=== PATIENT | male | born 1945 | race Two or more races ===

== ENCOUNTER 2023-08-07 16:21 | Emergency (ER) | payer OTHER ==
[~2023-08-07] VITALS: Ht 185.4 cm; Wt 89.8 kg
[2023-08-07] MEDS ORDERED: MICARDIS HCT 81 EAC1 PO (16:33)
[2023-08-07] MEDS ORDERED: UROXATRAL10 MG PO (16:34)
[2023-08-07] MEDS ORDERED: [UNRECOGNIZED DRUG - OTHER] (16:34)
[2023-08-07] MEDS ORDERED: VERELAN PM200 MG (16:34)
[2023-08-07 18:26] LABS: HEMATOCRIT 37.4 % (39.0-48.0); MEAN CELL VOLUME 88.9 fL (80.0-100.00); MEAN CORPUSCULAR HEMOGLOBIN 30.8 pg (27.00-32.0); MEAN CORPUSCULAR HGB CONC 34.6 g/dl (32.0-36.0); PLATELET COUNT 356 K/uL (150-450); RED BLOOD COUNT 4.21 M/uL (4.00-6.00); RED CELL DISTRIBUTION WIDTH 13.9 % (11.5-14.5)
[2023-08-07 18:49] LABS: ALBUMIN 3.7 gm/dL (3.4-5.0); BILIRUBIN TOTAL 0.38 mg/dL (0.3-1.2); CALCIUM 9.1 mg/dL (8.5-10.1); CKMB 1.7 NG/ML (0.5-3.6); CREATININE SERUM 1.08 mg/dL (0.70-1.30); GFR 65.95; GLOBULINA 3.8 G/DL (2.4-3.5); POTASSIUM 3.82 mEq/L (3.5-5.1); TOTAL PROTEIN 7.5 gm/dL (6.4-8.2)
== END 2023-08-07 22:24 | disposition home or self-care (01) ==
LOC: ER 16:21
PROVIDERS: Internal Medicine
DX: R55 Syncope and collapse (principal); E78.00 Pure hypercholesterolemia, unspecified; I10 Essential (primary) hypertension

== ENCOUNTER 2023-08-12 07:25 | Outpatient (CLI) | payer OTHER ==
[~2023-08-12 07:25] MED LIST: MICARDIS HCT 81 EAC1 PO; UROXATRAL10 MG PO; VERELAN PM200 MG; [UNRECOGNIZED DRUG - OTHER]
== END 2023-08-12 07:29 | disposition home or self-care (01) ==
LOC: NUCLEAR 07:25
PROVIDERS: ATTEND Internal Medicine
DX: I10 Essential (primary) hypertension (principal)

== ENCOUNTER → 2023-08-13 | Outpatient (CLI) | payer OTHER | END | disposition home or self-care (01) | LOC: MRI 10:21 | PROVIDERS: ATTEND General Practice | DX: R93.0 Abnormal findings on diagnostic imaging of skull and head, not elsewhere classified (principal); I60.9 Nontraumatic subarachnoid hemorrhage, unspecified; R55 Syncope and collapse | CPT/HCPCS: 70552 ==

== ENCOUNTER 2023-09-04 11:22 | Outpatient (CLI) | payer OTHER | END 2023-09-04 11:32 | disposition home or self-care (01) | LOC: RAD 11:22 | DX: J18.9 Pneumonia, unspecified organism (principal); D68.8 Other specified coagulation defects; Z03.818 Encounter for observation for suspected exposure to other biological agents ruled out ==

== ENCOUNTER 2024-04-17 14:15 | Emergency (ER) | payer OTHER ==
[~2024-04-17] VITALS: Ht 185.4 cm; Wt 75.3 kg
== END 2024-04-17 18:27 | disposition home or self-care (01) ==
LOC: ER 14:16
DX: K59.00 Constipation, unspecified (principal)

== ENCOUNTER 2024-04-22 09:07 | Outpatient (CLI) | payer OTHER | END 2024-04-22 09:19 | disposition home or self-care (01) | LOC: SONOGRAMA 09:07 | DX: K59.00 Constipation, unspecified (principal); K59.9 Functional intestinal disorder, unspecified ==

== ENCOUNTER 2024-05-18 13:47 | Outpatient (CLI) | payer OTHER | END 2024-05-18 13:50 | disposition home or self-care (01) | LOC: RAD 13:47 | DX: S93.301A Unspecified subluxation of right foot, initial encounter (principal) ==

== ENCOUNTER 2024-05-29 15:15 | Outpatient (CLI) | payer OTHER | END 2024-05-29 15:33 | disposition home or self-care (01) | LOC: MRI 15:15 | PROVIDERS: ATTEND Orthopaedic Surgery | DX: M14.60 Charcot's joint, unspecified site (principal) | CPT/HCPCS: 73721 ==

== ENCOUNTER 2024-11-06 09:22 | Outpatient (CLI) | payer OTHER | END 2024-11-06 09:36 | disposition home or self-care (01) | LOC: SONOGRAMA 09:22 | PROVIDERS: ATTEND Student in an Organized Health Care Education/Training Program | DX: R10.30 Lower abdominal pain, unspecified (principal); R14.3 Flatulence ==

== ENCOUNTER 2024-11-19 14:25 | Emergency (ER) | payer OTHER ==
[~2024-11-19] VITALS: Ht 188 cm; Wt 82.1 kg
[2024-11-19] MEDS ORDERED: TETANUS & DIPHTHERIA TOX,ADULT 0.5 ML VIAL IM ONE (15:15)
[2024-11-19 16:18] VITALS: BP 130/72; O2SAT 98
[2024-11-19] MEDS ORDERED: FAMOTIDINE/PF 20 MG in 0.9 % SODIUM CHLORIDE 8 ML IV PUSH STA (16:23)
[2024-11-19] MEDS ORDERED: ONDANSETRON HCL 2 MG/ML VIAL IV STA (16:24)
[2024-11-19] MEDS ORDERED: FAMOTIDINE/PF 20 MG/2 ML VIAL ONE (16:27)
[2024-11-19] MEDS ORDERED: DIPHTH,PERTUSS(ACELL),TET VAC 0.5 ML SYRINGE IM ONE (16:27)
[2024-11-19] MEDS ORDERED: hydrOXYzine PAMOATE 50 MG CAPSULE PO ONE ×2 (16:27→16:30)
[2024-11-19 16:48] LABS: CALCIUM 9.5 mg/dL (8.5-10.1); CREATININE SERUM 1.34 mg/dL (0.70-1.30); GFR 51.16; POTASSIUM 3.66 mEq/L (3.5-5.1)
[2024-11-19 17:12] LABS: BASO % 0.5 % (0.1-1.2); EOS % 1.6 % (0.7-7.0); HEMATOCRIT 34.1 % (40.1-51.0); HEMOGLOBIN 11.5 g/dL (13.7-17.5); LYMPH # 0.68 (1.18-3.74); LYMPH % 11.2 % (19.3-53.1); MEAN CORPUSCULAR HEMOGLOBIN 30.1 pg (25.6-32.2); MONO # 0.54 (0.24-0.82); MONO % 8.9 % (4.7-12.5); NEUT % 77.5 % (34.0-71.1); PLATELET COUNT 205 K/uL (163-369); RED BLOOD COUNT 3.82 M/uL (4.63-6.08); RED CELL DISTRIBUTION WIDTH 12.8 % (11.6-14.4)
== END 2024-11-19 20:58 | disposition home or self-care (01) ==
LOC: ER 14:25
PROVIDERS: Emergency Medicine
DX: S09.8XXA Other specified injuries of head, initial encounter (principal); W18.39XA Other fall on same level, initial encounter; Y93.89 Activity, other specified; Y92.013 Bedroom of single-family (private) house as the place of occurrence of the external cause